=== PATIENT | female | born 1960 | race Two or more races ===

== ENCOUNTER → 2018-04-16 | Outpatient (CLI) | payer OTHER ==
[~2018-04-16] MED LIST: CINTROID
== END | disposition home or self-care (01) ==
LOC: RAD 15:25
DX: Z13.6 Encounter for screening for cardiovascular disorders (principal); M79.671 Pain in right foot

== ENCOUNTER 2018-04-20 07:33 | Outpatient (CLI) | payer OTHER | END 2018-04-20 07:34 | disposition home or self-care (01) | LOC: SONOGRAMA 07:33 | DX: E03.8 Other specified hypothyroidism (principal) ==

== ENCOUNTER 2018-08-09 16:13 | Emergency (ER) | payer OTHER ==
[~2018-08-09] VITALS: Ht 157.5 cm; Wt 79.8 kg
[2018-08-09] MEDS ORDERED: ADULT ASPIRIN81 MG (16:53)
== END 2018-08-09 21:58 | disposition home or self-care (01) ==
LOC: ER 16:13
DX: S20.211A Contusion of right front wall of thorax, initial encounter (principal); S30.1XXA Contusion of abdominal wall, initial encounter; W18.39XA Other fall on same level, initial encounter; Y93.89 Activity, other specified; Y92.89 Other specified places as the place of occurrence of the external cause; Y99.8 Other external cause status

== ENCOUNTER → 2019-02-21 17:58 | Outpatient (CLI) | payer OTHER ==
[~2019-02-21 17:58] MED LIST changes: +ADULT ASPIRIN81 MG
== END | disposition home or self-care (01) ==
LOC: LAB 17:58
DX: R23.3 Spontaneous ecchymoses (principal); R94.5 Abnormal results of liver function studies; N30.00 Acute cystitis without hematuria; I10 Essential (primary) hypertension; E78.00 Pure hypercholesterolemia, unspecified

== ENCOUNTER → 2020-08-21 | Outpatient (CLI) | payer OTHER | END | disposition home or self-care (01) | LOC: SONOGRAMA 15:03 | PROVIDERS: ATTEND Internal Medicine Endocrinology, Diabetes & Metabolism | DX: E03.8 Other specified hypothyroidism (principal); E78.2 Mixed hyperlipidemia; M81.0 Age-related osteoporosis without current pathological fracture; R10.2 Pelvic and perineal pain ==

== ENCOUNTER → 2021-01-25 | Outpatient (CLI) | payer OTHER | END | disposition home or self-care (01) | LOC: PPH VACUNA 08:00 | PROVIDERS: ATTEND Emergency Medicine Pediatric Emergency Medicine | DX: Z23 Encounter for immunization (principal) ==

== ENCOUNTER 2022-03-20 13:40 | Outpatient (CLI) | payer OTHER | END 2022-03-20 13:50 | disposition home or self-care (01) | LOC: PPH VACUNA 13:40 | PROVIDERS: ATTEND Emergency Medicine Pediatric Emergency Medicine | DX: Z23 Encounter for immunization (principal) ==

== ENCOUNTER 2023-02-25 13:50 | Outpatient (CLI) | payer OTHER | END 2023-02-25 14:02 | disposition home or self-care (01) | LOC: RAD 13:50 | PROVIDERS: ATTEND Specialist | DX: M25.511 Pain in right shoulder (principal) ==

== ENCOUNTER 2023-11-18 14:30 | Outpatient (CLI) | payer OTHER | END 2023-11-18 14:39 | disposition home or self-care (01) | LOC: RAD 14:30 | PROVIDERS: ATTEND Specialist | DX: M54.12 Radiculopathy, cervical region (principal); M89.8X1 Other specified disorders of bone, shoulder ==

== ENCOUNTER 2023-11-25 09:01 | Emergency (ER) | payer OTHER ==
[~2023-11-25] VITALS: Ht 160 cm; Wt 78.9 kg
[2023-11-25] MEDS ORDERED: SYNTHROID50 MCG (09:17)
[2023-11-25] MEDS ORDERED: METFORMIN HCL500 MG (09:18)
[2023-11-25] MEDS ORDERED: ROSUVASTATIN CA20 MG (09:18)
[2023-11-25] MEDS ORDERED: ORPHENADRINE CITRATE 30 MG/ML AMPUL ONE (10:12)
[2023-11-25] MEDS ORDERED: KETOROLAC TROMETHAMINE 60 MG VIAL IM ONE ×2 (10:12→10:15)
[2023-11-25] MEDS ORDERED: ORPHENADRINE CITRATE 30 MG/ML AMPUL IM ONE (10:15)
[2023-11-25] MEDS ORDERED: VOLTAREN ARTHRI20 GM TOP (11:30)
[2023-11-25] MEDS ORDERED: NORFLEX100MG PO (11:30)
== END 2023-11-25 11:43 | disposition home or self-care (01) ==
LOC: ER 09:02
DX: S20.20XA Contusion of thorax, unspecified, initial encounter (principal); W19.XXXA Unspecified fall, initial encounter; Y93.89 Activity, other specified; Y92.89 Other specified places as the place of occurrence of the external cause; Y99.8 Other external cause status; E11.9 Type 2 diabetes mellitus without complications; Z79.84 Long term (current) use of oral hypoglycemic drugs

== ENCOUNTER 2024-12-20 08:54 | Outpatient (CLI) | payer OTHER ==
[~2024-12-20 08:54] MED LIST changes: +METFORMIN HCL500 MG; +NORFLEX100MG PO; +ROSUVASTATIN CA20 MG; +SYNTHROID50 MCG; +VOLTAREN ARTHRI20 GM TOP
== END 2024-12-21 09:00 | disposition home or self-care (01) ==
LOC: RAD 08:54
PROVIDERS: ATTEND Physical Medicine & Rehabilitation Sports Medicine
DX: M54.51 Vertebrogenic low back pain (principal); M70.62 Trochanteric bursitis, left hip